=== PATIENT | male | born 1990 | race American Indian/Alaskan Native ===

== ENCOUNTER 2019-05-30 14:24 | Emergency (ER) | payer SELFPAY ==
[2019-05-30] MEDS ORDERED: ONDANSETRON 4 MG ODT TAB PO ONE (17:14)
--- NOTE | 2019-05-30 17:14 | Event Note ---
ED Screening Note Date of service: 05/30/19 Time: 17:12 ED Screening Note: This is a 28 y.o. M. that presents to the ER with abdominal pain and vomiting for 1 day. This initial assessment/diagnostic orders/clinical plan/treatment(s) is/are subject to change based on patients health status, clinical progression and re- assessment by fellow clinical providers in the ED. Further treatment and workup at subsequent clinical providers discretion. Patient/guardian urged not to elope from the ED as their condition may be serious if not clinically assessed and managed. Initial orders include: Labs Given antiemetic
[2019-05-30 18:09] LABS: Basophils % (Auto) 0.2 % (0.0-1.8); Eosinophils % (Auto) 0.1 % (0.0-4.3); Hematocrit 51.9 % (35.5-45.6); Lymphocytes % (Auto) 9.5 % (13.4-35.0); Mean Corpuscular HGB Conc 33 % (32-34); Mean Corpuscular Volume 80 fl (84-94); Monocytes # (Auto) 0.9 K/mm3 (0.0-0.8); Monocytes % (Auto) 7.8 % (0.0-7.3); Red Cell Distribution Width 15.7 % (13.2-15.2)
[2019-05-30 18:13] LABS: Platelet Count 254 K/mm3 (140-440)
[2019-05-30 18:33] LABS: Alanine Aminotransferase 30 units/L (7-56); Albumin 4.5 g/dL (3.9-5); BUN/Creatinine Ratio 14; Blood Urea Nitrogen 13 mg/dL (9-20); Calcium 9.6 mg/dL (8.4-10.2); Hemolysis Index 36
[2019-05-30 18:34] LABS: Bilirubin,Urine NEG (Negative); Blood,Urine NEG (Negative); Color,Urine Yellow (Yellow); Mucus,Urine 2+ /HPF
[2019-05-30] MEDS ORDERED: SODIUM CHLORIDE 0.9% 1000 ML 1,000 ML IV ONE (20:24)
[2019-05-30] MEDS ORDERED: ONDANSETRON 4 MG/2 ML INJ IV ONE (20:24)
[2019-05-30] MEDS ORDERED: DICYCLOMINE 20 MG/2 ML INJ IM ONE (20:24)
[2019-05-30] MEDS ORDERED: IPRATROPIUM/ALBUTEROL SULFATE 3 ML AMPUL.NEB IH ONE (20:24)
--- NOTE | 2019-05-30 21:19 | Emergency Department Report ---
ED General Adult HPI - General Chief complaint: Abdominal Pain Stated complaint: STOMACH CRAMPS Time Seen by Provider: 05/30/19 17:12 Source: patient Mode of arrival: Ambulatory Limitations: No Limitations - History of Present Illness Initial comments: pt is a 28-year-old male presents emergency room with complaints of nausea, vomiting, diarrhea that began earlier today. He has associated abdominal cramping. He states that he has also had some congestion and rhinorrhea for approximately a week. He denies any fever, urinary symptoms, hematochezia, melena, hematemesis. He denies any known sick contacts. He states he has a past medical history of asthma and allergies. He denies any allergies medications. Severity scale (0 -10): 2 - Related Data Previous Rx's Medication Instructions Recorded Last Taken Type ALBUTEROL Inhaler (OR & NICU) 2 puff IH QID PRN #8.5 gram 05/30/19 Unknown Rx [ProAir HFA Inhaler] Dicyclomine [Bentyl] 20 mg PO TID PRN #10 tablet 05/30/19 Unknown Rx Loratadine 10 mg PO DAILY #30 tablet 05/30/19 Unknown Rx Ondansetron [Zofran Odt] 4 mg PO Q8HR PRN #10 tab.rapdis 05/30/19 Unknown Rx Allergies Allergy/AdvReac Type Severity Reaction Status Date / Time No Known Allergies Allergy Verified 05/30/19 20:58 ED Review of Systems ROS: Stated complaint: STOMACH CRAMPS Other details as noted in HPI Comment: All other systems reviewed and negative ED Past Medical Hx - Social History Smoking Status: Never Smoker Substance Use Type: None - Medications Home Medications: Home Medications Medication Instructions Recorded Confirmed Last Taken Type ALBUTEROL Inhaler (OR & NICU) 2 puff IH QID PRN #8.5 gram 05/30/19 Unknown Rx [ProAir HFA Inhaler] Dicyclomine [Bentyl] 20 mg PO TID PRN #10 tablet 05/30/19 Unknown Rx Loratadine 10 mg PO DAILY #30 tablet 05/30/19 Unknown Rx Ondansetron [Zofran Odt] 4 mg PO Q8HR PRN #10 tab.rapdis 05/30/19 Unknown Rx ED Physical Exam - General Limitations: No Limitations General appearance: alert, in no apparent distress - Head Head exam: Present: atraumatic, normocephalic - Eye Eye exam: Present: normal appearance - ENT ENT exam: Present: normal orophraynx, mucous membranes moist, other (pale turbinates) - Respiratory Respiratory exam: Present: wheezes (mild wheezing bilaterally). Absent: respiratory distress, rales, rhonchi, stridor, chest wall tenderness, accessory muscle use, decreased breath sounds, prolonged expiratory - Cardiovascular Cardiovascular Exam: Present: regular rate, normal rhythm, normal heart sounds. Absent: systolic murmur, diastolic murmur, rubs, gallop - GI/Abdominal GI/Abdominal exam: Present: soft, normal bowel sounds. Absent: distended, tenderness, guarding, rebound, rigid - Neurological Exam Neurological exam: Present: alert, oriented X3 - Psychiatric Psychiatric exam: Present: normal affect, normal mood - Skin Skin exam: Present: warm, dry, intact ED Course Vital Signs 05/30/19 05/30/19 05/30/19 17:12 17:14 19:11 Temperature 97.7 F 99.5 F Pulse Rate 117 H 114 H Respiratory 18 16 Rate Blood Pressure 160/82 148/88 [Left] O2 Sat by Pulse 99 98 Oximetry 05/30/19 22:01 Temperature 99.1 F Pulse Rate 107 H Respiratory 18 Rate Blood Pressure 123/82 [Left] O2 Sat by Pulse 100 Oximetry ED Medical Decision Making - Lab Data Result diagrams: 05/30/19 17:30 05/30/19 17:30 Lab Results 05/30/19 05/30/19 05/30/19 Range/Units 17:30 17:30 18:00 WBC 11.0 (4.5-11.0) K/mm3 RBC 6.50 H (3.65-5.03) M/mm3 Hgb 17.0 H (11.8-15.2) gm/dl Hct 51.9 H (35.5-45.6) % MCV 80 L (84-94) fl MCH 26 L (28-32) pg MCHC 33 (32-34) % RDW 15.7 H (13.2-15.2) % Plt Count 254 (140-440) K/mm3 Lymph % (Auto) 9.5 L (13.4-35.0) % [place] % (Auto) 7.8 H (0.0-7.3) % Eos % (Auto) 0.1 (0.0-4.3) % Baso % (Auto) 0.2 (0.0-1.8) % Lymph # 1.0 L (1.2-5.4) K/mm3 [place] # 0.9 H (0.0-0.8) K/mm3 Eos # 0.0 (0.0-0.4) K/mm3 Baso # 0.0 (0.0-0.1) K/mm3 Seg Neutrophils % 82.4 H (40.0-70.0) % Seg Neutrophils # 9.0 H (1.8-7.7) K/mm3 Sodium 141 (137-145) mmol/L Potassium 3.9 (3.6-5.0) mmol/L Chloride 105.0 (98-107) mmol/L Carbon Dioxide 20 L (22-30) mmol/L Anion Gap 20 mmol/L BUN 13 (9-20) mg/dL Creatinine 0.9 (0.8-1.5) mg/dL Estimated GFR > 60 ml/min BUN/Creatinine Ratio 14 % Glucose 98 (75-100) mg/dL Calcium 9.6 (8.4-10.2) mg/dL Total Bilirubin 0.70 (0.1-1.2) mg/dL AST 23 (5-40) units/L ALT 30 (7-56) units/L Alkaline Phosphatase 136 H (35-129) units/L Total Protein 8.3 H (6.3-8.2) g/dL Albumin 4.5 (3.9-5) g/dL Albumin/Globulin Ratio 1.2 % Lipase 13 (13-60) units/L Urine Color Yellow (Yellow) Urine Turbidity Clear (Clear) Urine pH 7.0 (5.0-7.0) Ur Specific [place] 1.033 H (1.003-1.030) Urine Protein 30 mg/dl (Negative) mg/dL Urine Glucose (UA) Neg (Negative) mg/dL Urine Ketones 20 (Negative) mg/dL Urine Blood Neg (Negative) Urine Nitrite Neg (Negative) Urine Bilirubin Neg (Negative) Urine Urobilinogen 4.0 (<2.0) mg/dL Ur Leukocyte Esterase Neg (Negative) Urine WBC (Auto) 1.0 (0.0-6.0) /HPF Urine RBC (Auto) 3.0 (0.0-6.0) /HPF U Epithel Cells (Auto) < 1.0 (0-13.0) /HPF Urine Mucus 2+ /HPF - Medical Decision Making pt is a 28-year-old male presents emergency room with complaints of nausea, vomiting, diarrhea that began earlier today. He has associated abdominal cramping. He states that he has also had some congestion and rhinorrhea for approximately a week. He denies any fever, urinary symptoms, hematochezia, melena, hematemesis. He denies any known sick contacts. He states he has a past medical history of asthma and allergies. He denies any allergies medications. vitals with tachycardia which improved upon repeat. labs are stable, shows evidence of mild dehydration. on exam mild wheezing bilaterally, no rales or rhonchi, no abd tenderness, normal bowel sounds. UA without UTI, mild ketones. pt given 1 L of fluids, Zofran, Bentyl, DuoNeb. Patient states that he is feeling much better after medications and is ready to go home. Patient was able tolerate by mouth intake in the emergency department and had no further episodes of N/V/D. wheezing has completely resolved s/p neb treatment and breath sounds are completely clear bilaterally. States that he needs refills of his allergy and asthma medication. Prescriptions for albuterol inhaler, loratadine, Zofran, Bentyl given. Advised patient to take medication as prescribed. Increase his fluid intake over the next several days. Eat a bland diet. Follow-up with a primary care doctor in the next 2-3 days. Return to the emergency room for any new or worsening symptoms. - Differential Diagnosis gastroenteritis, influenza, viral syndrome, colitis, pancreatitis Critical care attestation.: If time is entered above; I have spent that time in minutes in the direct care of this critically ill patient, excluding procedure time. ED Disposition Clinical Impression: Nausea vomiting and diarrhea Asthma Qualifiers: Asthma severity: unspecified severity Asthma persistence: unspecified Asthma complication type: uncomplicated Qualified Code(s): J45.909 - Unspecified as thma, uncomplicated Allergies Qualifiers: Encounter type: initial encounter Qualified Code(s): T78.40XA - Allergy, unspecified, initial encounter Disposition: TO HOME OR SELFCARE Is pt being admited?: No Does the pt Need Aspirin: No Condition: Stable Instructions: Gastroenteritis (ED), Viral Syndrome (ED) Additional Instructions: take medication as prescribed. Increase your fluid intake over the next several days. Eat a bland diet. Follow-up with a primary care doctor in the next 2-3 days. Return to the emergency room for any new or worsening symptoms. Prescriptions: Dicyclomine [Bentyl] 20 mg PO TID PRN #10 tablet PRN Reason: abdominal cramping Loratadine 10 mg PO DAILY #30 tablet ALBUTEROL Inhaler (OR & NICU) [ProAir HFA Inhaler] 2 puff IH QID PRN #8.5 gram PRN Reason: Shortness Of Breath Ondansetron [Zofran Odt] 4 mg PO Q8HR PRN #10 tab.rapdis PRN Reason: Nausea And Vomiting Referrals: JENN CORONA MD [Staff Physician] - 3-5 Days [facility] [Outside] - 3-5 Days Forms: Work/School Release Form(ED) Time of Disposition: 21:22 Print Language: THAI
[2019-05-30 22:03] VITALS: BP 123/82
== END 2019-05-30 22:01 | disposition home or self-care (01) ==
LOC: ED 14:24
DX: T78.40XA Allergy, unspecified, initial encounter (principal); J45.909 Unspecified asthma, uncomplicated; R11.2 Nausea with vomiting, unspecified; R19.7 Diarrhea, unspecified; Y92.89 Other specified places as the place of occurrence of the external cause
CPT/HCPCS: 36415; 80053; 81001; 83690; 85025; 94640; 96361; 96372; 96374; 99284; J0500; J2405; J7030; Q0162

== ENCOUNTER 2020-05-24 20:17 | Emergency (ER) | payer OTHER ==
[2020-05-24 22:44] VITALS: BP 144/92
[2020-05-24] MEDS ORDERED: HYDROcodone/ACETAMINOPHEN 5-325 MG TAB PO STA (23:36)
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
== END 2020-05-25 01:10 | disposition home or self-care (01) ==
LOC: ED 20:17
DX: M79.605 Pain in left leg (principal); M79.602 Pain in left arm; Z79.899 Other long term (current) drug therapy; V49.49XA Driver injured in collision with other motor vehicles in traffic accident, initial encounter; Y92.410 Unspecified street and highway as the place of occurrence of the external cause; Y93.89 Activity, other specified; Y99.8 Other external cause status
CPT/HCPCS: 99282